=== PATIENT | female | born 1955 | race Caucasian/White ===

== ENCOUNTER 2019-02-21 12:22 | Inpatient (IN) ==
[2019-02-21] MEDS ORDERED: Albuterol 2.5 MG/3 ML NEBULIZER IH ONE (12:41)
[2019-02-21] MEDS ORDERED: cefOXitin 2,000 MG in Water for inj. (sterile) 20 ML IVP ONE (12:42)
[2019-02-21] MEDS ORDERED: Ringers Solution, Lactated 1,000 ML IVC SCH (12:45)
[2019-02-21] MEDS ORDERED: *HR* Promethazine 25 MG/ML VIAL IVP PRN (13:05)
[2019-02-21] MEDS ORDERED: *HR* OxyCODONE Immed Rel 5 MG TABLET PO PRN (13:05)
[2019-02-21] MEDS ORDERED: Ondansetron 4 MG/2 ML VIAL IVP ONE (13:05)
[2019-02-21] MEDS ORDERED: *HR* HYDROmorphone (PF) 1 MG/ML SYRINGE IVP PRN (13:05)
[2019-02-21] MEDS ORDERED: Scopolamine Patch 1.5 MG PATCH.TD72 TD ONE (13:30)
[2019-02-21] MEDS ORDERED: *HR* Propofol 200 MG/20 ML VIAL IVP ONE (14:11)
[2019-02-21] MEDS ORDERED: *HR* FentaNYL (PF) 100 MCG/2 ML VIAL ONE (14:11)
[2019-02-21] MEDS ORDERED: *HR* Midazolam HCl 2 MG/2 ML VIAL ONE (14:12)
[2019-02-21] MEDS ORDERED: Lidocaine -MPF 2% 2 ML VIAL ONE ×2 (14:13→14:14)
[2019-02-21] MEDS ORDERED: *HR* Rocuronium Bromide 50 MG/5 ML VIAL ONE ×2 (14:16→16:39)
[2019-02-21] MEDS ORDERED: Ondansetron 4 MG/2 ML VIAL ONE (14:16)
[2019-02-21] MEDS ORDERED: Lidocaine HCL 4 ML Topical Solution (Laryng-O-Jet Kit Sterile Pak) TP ONE (14:16)
[2019-02-21] MEDS ORDERED: Acetaminophen IV 1,000 MG/100 ML INFUS..BTL ONE (15:07)
[2019-02-21] MEDS ORDERED: *HR* PHENYLEPHRINE 1,000 MCG/10 ML SYRINGE IVP ONE (15:47)
[2019-02-21] MEDS ORDERED: Dexamethasone 4 MG/ML VIAL ONE (16:09)
[2019-02-21] MEDS ORDERED: *HR* Succinylcholine 200 MG/10 ML VIAL IVP ONE (16:26)
[2019-02-21] MEDS ORDERED: *HR* HYDROMORPHONE 2 MG/ML VIAL ONE (17:55)
[2019-02-21] MEDS ORDERED: Naloxone 0.4 MG/ML INJ IVP PRN (19:10)
[2019-02-21] MEDS ORDERED: Ondansetron 4 MG/2 ML VIAL IVP PRN (19:10)
[2019-02-21] MEDS: 0.9 % Sodium Chloride 1,000 ML IVC SCH (20:52)
[2019-02-22] MEDS ORDERED: Ketorolac 15 MG/ML VIAL IVP SCH
[2019-02-22 09:40] LABS: Basophils % 0.1 %; Hematocrit 39.4 % (35.3-44.9); Hemoglobin 12.6 g/dL (11.5-15.4); Immature Granulocytes % 0.6 % (0-4); Lymphocytes # 2.8 K/mcL (0.6-4.6); Lymphocytes % 16.9 %; Mean Corpuscular Volume 96.8 fL (83.0-100.0); Mean Platelet Volume 9.9 fL (9.4-12.4); Monocytes # 0.5 K/mcL (0.0-1.3); Monocytes % 3.1 %; Neutrophils # 13.3 K/mcL (1.6-8.9); Platelet Count 286 K/mcL (140-400); Red Blood Count 4.07 M/mcL (3.82-4.97); Red Cell Distribution Width 13.7 % (11.5-14.5); Segmented Neutrophils % 79.3 %; White Blood Count 16.7 K/mcL (4.3-11.1)
[2019-02-22 09:59] LABS: BUN/Creatinine Ratio 9 (6-26); Blood Urea Nitrogen 8 mg/dL (8-23); Calcium 8.7 mg/dL (8.6-10.3); Carbon Dioxide 20 mEq/L (23-29); Chloride 114 mEq/L (98-107); Glucose 170 mg/dL (70-105); Osmolality,Calculated 296 (280-300); Sodium 142 mEq/L (136-145); eGFR For African Americans > 60 (> 60); eGFR For Non-African Americans > 60 (> 60)
[2019-02-22] MEDS: Albuterol 2.5 MG/3 ML NEBULIZER IH SCH ×2 (15:49→22:15)
[2019-02-22] MEDS: 0.9 % Sodium Chloride 1,000 ML IVC SCH (19:34)
[2019-02-23] MEDS: 0.9 % Sodium Chloride 1,000 ML IVC SCH ×2 (00:38→14:30)
[2019-02-23] MEDS: Albuterol 2.5 MG/3 ML NEBULIZER IH SCH ×4 (04:27→22:13)
[2019-02-24] MEDS: 0.9 % Sodium Chloride 1,000 ML IVC SCH (03:30)
[2019-02-24] MEDS: Albuterol 2.5 MG/3 ML NEBULIZER IH SCH ×2 (03:59→11:17)
[2019-02-24 08:07] VITALS: BP 122/78
== END 2019-02-24 11:46 | disposition home or self-care (01) | DRG 331 ==
LOC: SAMDAY 12:22 → 3ANU 18:59
PROVIDERS: ADMIT Surgery; ATTEND Surgery

== ENCOUNTER 2020-11-05 15:43 | Inpatient (IN) ==
[2020-11-05] MEDS ORDERED: Naloxone 0.4 MG/ML INJ IVP PRN (19:48)
[2020-11-05 20:41] LABS: INR 1.4; Prothrombin Time 16.3 Seconds (9.4-12.1)
[2020-11-05 20:44] LABS: Activated Partial Thrombo Time 66.9 Seconds (26.0-36.0)
[2020-11-05 20:54] LABS: Heparin anti-factor XA UFH 0.6 IU/mL (0.30-0.70)
[2020-11-05] MEDS: Furosemide 40 MG/4 ML VIAL IVP SCH (21:03)
[2020-11-05] MEDS: Calcium Gluconate 1gm/50mL 1 GM/50 ML BAG IVPB SCH ×2 (21:03→21:45)
[2020-11-05 21:17] LABS: Basophils % 0.1 %; Hematocrit 37.6 % (35.3-44.9); Hemoglobin 11.7 g/dL (11.5-15.4); Immature Granulocytes % 0.7 % (0-4); Lymphocytes # 0.7 K/mcL (0.6-4.6); Mean Corpuscular HGB Conc 31.1 g/dL (31.6-35.5); Mean Corpuscular Hemoglobin 30.5 pg (28.0-33.3); Mean Platelet Volume 10.6 fL (9.4-12.4); Monocytes # 0.1 K/mcL (0.0-1.3); Monocytes % 0.9 %; Neutrophils # 9.4 K/mcL (1.6-8.9); Nucleated Red Blood Cells 0.2 /100 WBC (0); Platelet Count 318 K/mcL (140-400); Red Blood Count 3.83 M/mcL (3.82-4.97); Red Cell Distribution Width 18.9 % (11.5-14.5); Segmented Neutrophils % 91.3 %; White Blood Count 10.3 K/mcL (4.3-11.1)
[2020-11-05 21:26] LABS: Mean Corpuscular Volume 98.2 fL (83.0-100.0)
[2020-11-05 21:37] LABS: Albumin 3.4 g/dL (3.5-5.7); Albumin/Globulin Ratio 1.3 (1.1-2.2); Bilirubin,Total 0.4 mg/dL (0.3-1.0); Calcium 7.8 mg/dL (8.6-10.3); Globulin 2.6 g/dL (2.4-3.5); Magnesium 2.8 mg/dL (1.6-2.6); Phosphorous 4.3 mg/dL (2.7-4.5); Potassium 4.4 mEq/L (3.5-5.1)
[2020-11-05] MEDS ORDERED: *HR* Heparin 5,000 UNIT/ML VIAL IVP PRN ×2 (21:54)
[2020-11-05] MEDS: Heparin 25,000UNIT/250ML 1/2NS 25,000 UNIT/250 ML IV.SOLN IVC SCH (22:25)
[2020-11-06] MEDS ORDERED: Dextrose Gel 15 GM/37.5 ML TUBE PO PRN ×2
[2020-11-06] MEDS ORDERED: *HR* Dextrose 50 % in Water (Vial) 50 ML VIAL IVP PRN
[2020-11-06] MEDS ORDERED: D5% in Water 1,000 ML IVC PRN
[2020-11-06] MEDS ORDERED: Isovue-370 500 ML BOTTLE IVP ONE (00:05)
[2020-11-06] MEDS: Insulin LISPRO 300 UNITS/3 ML VIAL SUBQ SCH ×5 (00:12→20:55)
[2020-11-06 00:48] LABS: Bilirubin,Urine Negative (Negative); Blood,Urine Negative (Negative); Clarity,Urine Clear (Clear); Color,Urine Light-Yellow (Yellow); Glucose,Urine (UA) Normal (Normal); Ketones,Urine Negative (Negative); Leukocyte Esterase,Urine Negative (Negative); Nitrite,Urine Negative (Negative); PH,Urine 5.5 pH Units (5.0-8.0); Protein,Urine Negative (Neg-Trace); Specific Gravity,Urine 1.012 (1.010-1.025); Urobilinogen,Urine Normal (Normal)
[2020-11-06] MEDS ORDERED: Ipratropium/Albuterol Neb 3 ML IH PRN (00:51)
[2020-11-06 06:06] LABS: VBG Ionized Calcium 1.03 mmol/L (1.15-1.35)
[2020-11-06] MEDS ORDERED: Budesonide/Formoterol 160/4.5 1 PUFF INH IH ONE (07:29)
[2020-11-06] MEDS: Budesonide/Formoterol 160/4.5 1 PUFF INH IH SCH ×2 (07:33→20:21)
[2020-11-06] MEDS: Ipratropium/Albuterol Neb 3 ML IH SCH ×5 (07:33→23:40)
[2020-11-06] MEDS: Furosemide 40 MG/4 ML VIAL IVP SCH (07:36)
[2020-11-06] MEDS: Azithromycin 500 MG in 0.9 % Sodium Chloride 250 ML IVPB SCH (07:37)
[2020-11-06] MEDS: cefTRIAXone 1,000 MG in Water for inj. (sterile) 10 ML IVP SCH (07:39)
[2020-11-06] MEDS ORDERED: Perflutren Lipid Microsphere 1.3 ML in 0.9 % Sodium Chloride 8.7 ML IVP PRN (08:28)
[2020-11-06] MEDS ORDERED: Calcium Gluconate 1gm/50mL 1 GM/50 ML BAG IVPB SCH (08:30)
[2020-11-06 08:33] LABS: BUN/Creatinine Ratio 29 (6-26); Blood Urea Nitrogen 30 mg/dL (8-23); Calcium 8.9 mg/dL (8.6-10.3); Carbon Dioxide 23 mEq/L (23-29); Chloride 107 mEq/L (98-107); Glucose 108 mg/dL (70-105); Hematocrit 40.4 % (35.3-44.9); Hemoglobin 12.3 g/dL (11.5-15.4); Mean Corpuscular HGB Conc 30.4 g/dL (31.6-35.5); Mean Corpuscular Hemoglobin 29.9 pg (28.0-33.3); Mean Corpuscular Volume 98.1 fL (83.0-100.0); Mean Platelet Volume 10.6 fL (9.4-12.4); Osmolality,Calculated 307 (280-300); Platelet Count 357 K/mcL (140-400); Potassium 3.8 mEq/L (3.5-5.1); Red Blood Count 4.12 M/mcL (3.82-4.97); Red Cell Distribution Width 19.4 % (11.5-14.5); Sodium 145 mEq/L (136-145); White Blood Count 15.3 K/mcL (4.3-11.1); eGFR For African Americans > 60 (> 60); eGFR For Non-African Americans 53 (> 60)
[2020-11-06] MEDS: MethylPREDNISolone 40 MG/ML VIAL IVP SCH ×2 (08:35→16:46)
[2020-11-06] MEDS: Nystatin SUSP 5 ML UD.LIQ PO SCH ×4 (08:35→20:51)
[2020-11-06] MEDS ORDERED: polyethylene glycoL 3350 17 GM POWD.PACK PO PRN (08:38)
[2020-11-06] MEDS ORDERED: Albuterol 2.5 MG/3 ML NEBULIZER IH PRN (08:41)
[2020-11-06 08:46] LABS: Troponin I 0.12 ng/mL (< 0.04)
[2020-11-06 09:10] LABS: Adenovirus Not Detected (Not Detect); Bordetella Pertussis Not Detected (Not Detect); Chlamydophila pneumoniae Not Detected (Not Detect); Coronavirus 229E Not Detected (Not Detect); Coronavirus HKU1 Not Detected (Not Detect); Coronavirus NL63 Not Detected (Not Detect); Coronavirus OC43 Not Detected (Not Detect); Human Metapneumovirus Not Detected (Not Detect); Human Rhinovirus/Enterovirus Not Detected (Not Detect); Influenza A Subtype 2009 H1 Not Detected (Not Detect); Influenza B Not Detected (Not Detect); Mycoplasma pneumoniae Not Detected (Not Detect); Parainfluenza Virus 1 Not Detected (Not Detect); Parainfluenza Virus 2 Not Detected (Not Detect); Parainfluenza Virus 3 Not Detected (Not Detect); Parainfluenza Virus 4 Not Detected (Not Detect); Respiratory Syncytial Virus Not Detected (Not Detect); SARS-CoV-2 Not Detected (Not Detect)
[2020-11-06] MEDS: ALPRAZolam 0.25 MG TABLET PO SCH ×2 (12:18→20:51)
[2020-11-06] MEDS: Gabapentin 100 MG CAPSULE PO SCH ×3 (12:18→20:51)
[2020-11-06 14:06] LABS: VBG Ionized Calcium 1.02 mmol/L (1.15-1.35)
[2020-11-06 14:28] LABS: BUN/Creatinine Ratio 28 (6-26); Blood Urea Nitrogen 29 mg/dL (8-23); Carbon Dioxide 22 mEq/L (23-29); Chloride 108 mEq/L (98-107); Glucose 157 mg/dL (70-105); Osmolality,Calculated 307 (280-300); Potassium 3.8 mEq/L (3.5-5.1); Sodium 144 mEq/L (136-145); Troponin I 0.11 ng/mL (< 0.04); eGFR For African Americans > 60 (> 60); eGFR For Non-African Americans 53 (> 60)
[2020-11-07] MEDS: MethylPREDNISolone 40 MG/ML VIAL IVP SCH ×4 (00:17→23:47)
[2020-11-07] MEDS: Heparin 25,000UNIT/250ML 1/2NS 25,000 UNIT/250 ML IV.SOLN IVC SCH (00:18)
[2020-11-07 02:32] LABS: Basophils % 0.1 %; Hematocrit 36.8 % (35.3-44.9); Hemoglobin 11.3 g/dL (11.5-15.4); Immature Granulocytes % 0.6 % (0-4); Lymphocytes # 1.1 K/mcL (0.6-4.6); Lymphocytes % 7.3 %; Mean Corpuscular HGB Conc 30.7 g/dL (31.6-35.5); Mean Corpuscular Hemoglobin 30.6 pg (28.0-33.3); Mean Corpuscular Volume 99.7 fL (83.0-100.0); Mean Platelet Volume 10.5 fL (9.4-12.4); Monocytes # 0.5 K/mcL (0.0-1.3); Monocytes % 3.3 %; Neutrophils # 12.8 K/mcL (1.6-8.9); Nucleated Red Blood Cells 0.1 /100 WBC (0); Platelet Count 318 K/mcL (140-400); Red Blood Count 3.69 M/mcL (3.82-4.97); Red Cell Distribution Width 19.6 % (11.5-14.5); Segmented Neutrophils % 88.7 %; White Blood Count 14.4 K/mcL (4.3-11.1)
[2020-11-07 02:54] LABS: Alanine Aminotransferase 84 Units/L (7-52); Albumin 3.8 g/dL (3.5-5.7); Albumin/Globulin Ratio 1.4 (1.1-2.2); Alkaline Phosphatase 121 Units/L (34-104); Aspartate Amino Transferase 34 Units/L (13-39); BUN/Creatinine Ratio 27 (6-26); Bilirubin,Direct 0.1 mg/dL (0.0-0.2); Bilirubin,Indirect 0.3 mg/dL (0.0-1.0); Bilirubin,Total 0.4 mg/dL (0.3-1.0); Blood Urea Nitrogen 24 mg/dL (8-23); Calcium 8.9 mg/dL (8.6-10.3); Carbon Dioxide 25 mEq/L (23-29); Chloride 106 mEq/L (98-107); Globulin 2.8 g/dL (2.4-3.5); Glucose 140 mg/dL (70-105); Magnesium 2.7 mg/dL (1.6-2.6); Osmolality,Calculated 298 (280-300); Phosphorous 2.9 mg/dL (2.7-4.5); Sodium 141 mEq/L (136-145); Total Protein 6.6 g/dL (6.4-8.9); eGFR For African Americans > 60 (> 60); eGFR For Non-African Americans > 60 (> 60)
[2020-11-07] MEDS: Ipratropium/Albuterol Neb 3 ML IH SCH ×6 (03:32→23:23)
[2020-11-07] MEDS: ALPRAZolam 0.25 MG TABLET PO SCH ×2 (07:28→20:00)
[2020-11-07] MEDS: Gabapentin 100 MG CAPSULE PO SCH ×3 (07:28→19:59)
[2020-11-07] MEDS: Nystatin SUSP 5 ML UD.LIQ PO SCH ×4 (07:28→19:59)
[2020-11-07] MEDS: Aspirin 81 MG TAB.CHEW PO SCH (07:28)
[2020-11-07] MEDS: cefTRIAXone 1,000 MG in Water for inj. (sterile) 10 ML IVP SCH (07:32)
[2020-11-07] MEDS: Azithromycin 500 MG in 0.9 % Sodium Chloride 250 ML IVPB SCH (07:33)
[2020-11-07] MEDS: Insulin LISPRO 300 UNITS/3 ML VIAL SUBQ SCH ×4 (07:37→20:00)
[2020-11-07] MEDS: Budesonide/Formoterol 160/4.5 1 PUFF INH IH SCH ×2 (08:07→20:29)
[2020-11-07] MEDS ORDERED: Furosemide 40 MG/4 ML VIAL IVP ONE (10:15)
[2020-11-07] MEDS: Chlorhexidine Rinse 15 ML MOUTHWASH MM SCH ×2 (11:13→19:59)
[2020-11-07] MEDS: Acetaminophen 325 MG TABLET PO PRN ×2 (14:20→20:00)
[2020-11-07] MEDS: levoFLOXacin 750 MG/150 ML 750 MG/150 ML BAG IVPB SCH (16:33)
[2020-11-07] MEDS: Piperacillin/Tazobactam 3.375 GM in 0.9 % Sodium Chloride Mini Bag 100 ML IVPB SCH ×2 (16:33→23:48)
[2020-11-07] MEDS: *HR* Heparin 5,000 UNIT/ML VIAL SQ SCH (16:34)
[2020-11-08 00:54] LABS: Basophils % 0.1 %; Hematocrit 35.3 % (35.3-44.9); Lymphocytes # 1.6 K/mcL (0.6-4.6); Mean Corpuscular HGB Conc 31.2 g/dL (31.6-35.5); Mean Corpuscular Hemoglobin 30.1 pg (28.0-33.3); Mean Corpuscular Volume 96.7 fL (83.0-100.0); Mean Platelet Volume 10.3 fL (9.4-12.4); Monocytes # 0.8 K/mcL (0.0-1.3); Monocytes % 4.6 %; Neutrophils # 14.8 K/mcL (1.6-8.9); Nucleated Red Blood Cells 0.1 /100 WBC (0); Platelet Count 302 K/mcL (140-400); Red Blood Count 3.65 M/mcL (3.82-4.97); Red Cell Distribution Width 19.7 % (11.5-14.5); Segmented Neutrophils % 85.3 %; White Blood Count 17.4 K/mcL (4.3-11.1)
[2020-11-08 01:12] LABS: BUN/Creatinine Ratio 28 (6-26); Blood Urea Nitrogen 24 mg/dL (8-23); Calcium 8.7 mg/dL (8.6-10.3); Carbon Dioxide 26 mEq/L (23-29); Chloride 103 mEq/L (98-107); Glucose 156 mg/dL (70-105); Magnesium 2.3 mg/dL (1.6-2.6); Osmolality,Calculated 293 (280-300); Phosphorous 2.1 mg/dL (2.7-4.5); Potassium 4.4 mEq/L (3.5-5.1); Sodium 138 mEq/L (136-145); eGFR For African Americans > 60 (> 60); eGFR For Non-African Americans > 60 (> 60)
[2020-11-08] MEDS: Ipratropium/Albuterol Neb 3 ML IH SCH ×6 (04:07→23:00)
[2020-11-08] MEDS: *HR* Heparin 5,000 UNIT/ML VIAL SQ SCH ×2 (05:07→18:16)
[2020-11-08] MEDS: Insulin LISPRO 300 UNITS/3 ML VIAL SUBQ SCH ×3 (07:57→18:16)
[2020-11-08] MEDS: ALPRAZolam 0.25 MG TABLET PO SCH ×2 (07:59→20:53)
[2020-11-08] MEDS: Aspirin 81 MG TAB.CHEW PO SCH (07:59)
[2020-11-08] MEDS: Gabapentin 100 MG CAPSULE PO SCH ×3 (08:00→20:53)
[2020-11-08] MEDS: Chlorhexidine Rinse 15 ML MOUTHWASH MM SCH ×2 (08:00→20:54)
[2020-11-08] MEDS: Nystatin SUSP 5 ML UD.LIQ PO SCH ×4 (08:00→20:54)
[2020-11-08] MEDS: Piperacillin/Tazobactam 3.375 GM in 0.9 % Sodium Chloride Mini Bag 100 ML IVPB SCH ×2 (08:01→15:46)
[2020-11-08] MEDS: MethylPREDNISolone 40 MG/ML VIAL IVP SCH ×2 (08:01→15:45)
[2020-11-08] MEDS: Budesonide/Formoterol 160/4.5 1 PUFF INH IH SCH ×2 (08:36→20:01)
[2020-11-08] MEDS ORDERED: Furosemide 20 MG/2 ML VIAL IVP SCH (09:00)
[2020-11-08] MEDS: Calcium Gluconate 1gm/50mL 1 GM/50 ML BAG IVPB SCH ×2 (13:08→15:59)
[2020-11-08] MEDS: levoFLOXacin 750 MG/150 ML 750 MG/150 ML BAG IVPB SCH (15:48)
[2020-11-09] MEDS: Insulin LISPRO 300 UNITS/3 ML VIAL SUBQ SCH ×4 (00:29→17:42)
[2020-11-09] MEDS: MethylPREDNISolone 40 MG/ML VIAL IVP SCH ×3 (00:42→15:37)
[2020-11-09] MEDS: Piperacillin/Tazobactam 3.375 GM in 0.9 % Sodium Chloride Mini Bag 100 ML IVPB SCH ×3 (00:43→15:38)
[2020-11-09 01:13] LABS: Basophils % 0.1 %; Hemoglobin 11.1 g/dL (11.5-15.4); Immature Granulocytes % 0.8 % (0-4); Lymphocytes # 1.4 K/mcL (0.6-4.6); Lymphocytes % 7.7 %; Mean Corpuscular HGB Conc 30.8 g/dL (31.6-35.5); Mean Corpuscular Hemoglobin 30.4 pg (28.0-33.3); Mean Corpuscular Volume 98.6 fL (83.0-100.0); Mean Platelet Volume 10.3 fL (9.4-12.4); Monocytes # 1.3 K/mcL (0.0-1.3); Neutrophils # 15.2 K/mcL (1.6-8.9); Platelet Count 303 K/mcL (140-400); Red Blood Count 3.65 M/mcL (3.82-4.97); Red Cell Distribution Width 19.5 % (11.5-14.5); Segmented Neutrophils % 84.4 %; White Blood Count 17.9 K/mcL (4.3-11.1)
[2020-11-09 01:31] LABS: BUN/Creatinine Ratio 23 (6-26); Blood Urea Nitrogen 20 mg/dL (8-23); Calcium 9.3 mg/dL (8.6-10.3); Carbon Dioxide 30 mEq/L (23-29); Chloride 104 mEq/L (98-107); Glucose 166 mg/dL (70-105); Magnesium 2.1 mg/dL (1.6-2.6); Osmolality,Calculated 298 (280-300); Phosphorous 2.3 mg/dL (2.7-4.5); Potassium 4.5 mEq/L (3.5-5.1); Sodium 141 mEq/L (136-145); eGFR For African Americans > 60 (> 60); eGFR For Non-African Americans > 60 (> 60)
[2020-11-09] MEDS: Ipratropium/Albuterol Neb 3 ML IH SCH ×6 (03:50→23:13)
[2020-11-09 04:13] LABS: ABG Base Excess 4 mEq/L (-2 to 3); ABG HCO3 29 mEq/L (21-27); ABG Oxygen Saturation 87 % (95-98); ABG PCO2 41 mmHg (35-45); ABG PH 7.45 pH Units (7.32-7.45); ABG PO2 51 mmHg (85-104); ABG TCO2 30 mEq/L (20-26); Blood Gas Modality 60L
[2020-11-09] MEDS: *HR* Heparin 5,000 UNIT/ML VIAL SQ SCH ×2 (06:15→17:42)
[2020-11-09] MEDS: Nystatin SUSP 5 ML UD.LIQ PO SCH ×4 (08:05→21:18)
[2020-11-09] MEDS: Chlorhexidine Rinse 15 ML MOUTHWASH MM SCH ×2 (08:05→21:18)
[2020-11-09] MEDS: Gabapentin 100 MG CAPSULE PO SCH ×3 (08:07→21:18)
[2020-11-09] MEDS: ALPRAZolam 0.25 MG TABLET PO SCH ×2 (08:07→21:18)
[2020-11-09] MEDS: Aspirin 81 MG TAB.CHEW PO SCH (08:07)
[2020-11-09] MEDS: Budesonide/Formoterol 160/4.5 1 PUFF INH IH SCH ×2 (08:09→19:44)
[2020-11-09] MEDS: levoFLOXacin 750 MG/150 ML 750 MG/150 ML BAG IVPB SCH (15:37)
[2020-11-09] MEDS: Acetaminophen 325 MG TABLET PO PRN (15:54)
[2020-11-09] MEDS: traZODone 50 MG TABLET PO PRN (21:18)
[2020-11-10] MEDS: Insulin LISPRO 300 UNITS/3 ML VIAL SUBQ SCH ×5 (00:51→21:12)
[2020-11-10] MEDS: Piperacillin/Tazobactam 3.375 GM in 0.9 % Sodium Chloride Mini Bag 100 ML IVPB SCH ×3 (00:51→17:18)
[2020-11-10] MEDS: MethylPREDNISolone 40 MG/ML VIAL IVP SCH ×3 (00:52→17:18)
[2020-11-10 01:21] LABS: Basophils % 0.1 %; Hematocrit 36.5 % (35.3-44.9); Hemoglobin 11.2 g/dL (11.5-15.4); Immature Granulocytes % 0.9 % (0-4); Lymphocytes # 1.4 K/mcL (0.6-4.6); Mean Corpuscular HGB Conc 30.7 g/dL (31.6-35.5); Mean Corpuscular Hemoglobin 30.5 pg (28.0-33.3); Mean Corpuscular Volume 99.5 fL (83.0-100.0); Mean Platelet Volume 10.2 fL (9.4-12.4); Monocytes # 1.1 K/mcL (0.0-1.3); Monocytes % 6.5 %; Neutrophils # 14.5 K/mcL (1.6-8.9); Platelet Count 296 K/mcL (140-400); Red Blood Count 3.67 M/mcL (3.82-4.97); Red Cell Distribution Width 19.4 % (11.5-14.5); Segmented Neutrophils % 84.5 %; White Blood Count 17.2 K/mcL (4.3-11.1)
[2020-11-10 01:38] LABS: BUN/Creatinine Ratio 22 (6-26); Blood Urea Nitrogen 17 mg/dL (8-23); Calcium 8.9 mg/dL (8.6-10.3); Carbon Dioxide 28 mEq/L (23-29); Chloride 107 mEq/L (98-107); Glucose 142 mg/dL (70-105); Magnesium 2.2 mg/dL (1.6-2.6); Osmolality,Calculated 302 (280-300); Phosphorous 3.4 mg/dL (2.7-4.5); Potassium 4.2 mEq/L (3.5-5.1); Sodium 144 mEq/L (136-145); eGFR For African Americans > 60 (> 60); eGFR For Non-African Americans > 60 (> 60)
[2020-11-10] MEDS: Ipratropium/Albuterol Neb 3 ML IH SCH ×6 (04:00→23:29)
[2020-11-10] MEDS: Acetaminophen 325 MG TABLET PO PRN (05:44)
[2020-11-10] MEDS: *HR* Heparin 5,000 UNIT/ML VIAL SQ SCH ×2 (05:45→17:18)
[2020-11-10] MEDS: Budesonide/Formoterol 160/4.5 1 PUFF INH IH SCH ×2 (07:28→20:32)
[2020-11-10] MEDS: Chlorhexidine Rinse 15 ML MOUTHWASH MM SCH ×2 (07:55→21:09)
[2020-11-10] MEDS: Nystatin SUSP 5 ML UD.LIQ PO SCH ×4 (07:55→21:09)
[2020-11-10] MEDS: Furosemide 40 MG/4 ML VIAL IVP SCH ×2 (07:55→21:10)
[2020-11-10] MEDS: ALPRAZolam 0.25 MG TABLET PO SCH ×2 (07:55→21:10)
[2020-11-10] MEDS: Aspirin 81 MG TAB.CHEW PO SCH (07:56)
[2020-11-10] MEDS: Gabapentin 100 MG CAPSULE PO SCH ×3 (07:56→21:10)
[2020-11-10] MEDS ORDERED: Ondansetron 4 MG/2 ML VIAL IVP PRN (12:13)
[2020-11-10] MEDS ORDERED: Scopolamine Patch 1.5 MG PATCH.TD72 TD SCH (12:15)
[2020-11-10] MEDS: Morphine Sulfate Oral CONC 10 MG/0.5 ML ORAL.SYG SL PRN ×2 (13:22→21:08)
[2020-11-10] MEDS: levoFLOXacin 750 MG/150 ML 750 MG/150 ML BAG IVPB SCH (15:21)
[2020-11-10] MEDS: traZODone 50 MG TABLET PO PRN (21:09)
[2020-11-11] MEDS: Piperacillin/Tazobactam 3.375 GM in 0.9 % Sodium Chloride Mini Bag 100 ML IVPB SCH ×4 (00:55→23:53)
[2020-11-11] MEDS: MethylPREDNISolone 40 MG/ML VIAL IVP SCH ×4 (00:56→23:53)
[2020-11-11] MEDS: Morphine Sulfate Oral CONC 10 MG/0.5 ML ORAL.SYG SL PRN ×5 (00:56→23:52)
[2020-11-11 01:28] LABS: Hematocrit 39.9 % (35.3-44.9); Hemoglobin 12.3 g/dL (11.5-15.4); Mean Corpuscular HGB Conc 30.8 g/dL (31.6-35.5); Mean Corpuscular Volume 97.3 fL (83.0-100.0); Mean Platelet Volume 10.3 fL (9.4-12.4); Platelet Count 348 K/mcL (140-400); Red Cell Distribution Width 19.1 % (11.5-14.5); White Blood Count 20.4 K/mcL (4.3-11.1)
[2020-11-11 01:45] LABS: BUN/Creatinine Ratio 20 (6-26); Blood Urea Nitrogen 20 mg/dL (8-23); Calcium 9.1 mg/dL (8.6-10.3); Carbon Dioxide 32 mEq/L (23-29); Chloride 99 mEq/L (98-107); Glucose 175 mg/dL (70-105); Osmolality,Calculated 299 (280-300); Potassium 3.9 mEq/L (3.5-5.1); Sodium 141 mEq/L (136-145); eGFR For African Americans > 60 (> 60); eGFR For Non-African Americans 56 (> 60)
[2020-11-11] MEDS: Ipratropium/Albuterol Neb 3 ML IH SCH ×6 (03:38→23:02)
[2020-11-11] MEDS: *HR* Heparin 5,000 UNIT/ML VIAL SQ SCH ×2 (06:53→17:28)
[2020-11-11] MEDS: Budesonide/Formoterol 160/4.5 1 PUFF INH IH SCH ×2 (07:25→20:10)
[2020-11-11] MEDS: Chlorhexidine Rinse 15 ML MOUTHWASH MM SCH ×2 (08:31→19:45)
[2020-11-11] MEDS: Furosemide 40 MG/4 ML VIAL IVP SCH ×2 (08:31→19:45)
[2020-11-11] MEDS: Nystatin SUSP 5 ML UD.LIQ PO SCH ×4 (08:31→19:44)
[2020-11-11] MEDS: ALPRAZolam 0.25 MG TABLET PO SCH ×2 (08:32→19:45)
[2020-11-11] MEDS: Insulin LISPRO 300 UNITS/3 ML VIAL SUBQ SCH ×4 (08:32→19:49)
[2020-11-11] MEDS: Aspirin 81 MG TAB.CHEW PO SCH (08:32)
[2020-11-11] MEDS: Gabapentin 100 MG CAPSULE PO SCH ×3 (08:33→19:45)
[2020-11-11] MEDS: levoFLOXacin 750 MG/150 ML 750 MG/150 ML BAG IVPB SCH (16:12)
[2020-11-12] MEDS: Ipratropium/Albuterol Neb 3 ML IH SCH ×2 (04:15→07:37)
[2020-11-12] MEDS: *HR* Heparin 5,000 UNIT/ML VIAL SQ SCH (05:45)
[2020-11-12 07:32] VITALS: BP 128/74
[2020-11-12] MEDS: Budesonide/Formoterol 160/4.5 1 PUFF INH IH SCH (07:37)
[2020-11-12] MEDS: Gabapentin 100 MG CAPSULE PO SCH (07:41)
[2020-11-12] MEDS: Chlorhexidine Rinse 15 ML MOUTHWASH MM SCH (07:41)
[2020-11-12] MEDS: Piperacillin/Tazobactam 3.375 GM in 0.9 % Sodium Chloride Mini Bag 100 ML IVPB SCH (07:41)
[2020-11-12] MEDS: Nystatin SUSP 5 ML UD.LIQ PO SCH (07:41)
[2020-11-12] MEDS: Furosemide 40 MG/4 ML VIAL IVP SCH (07:41)
[2020-11-12] MEDS: MethylPREDNISolone 40 MG/ML VIAL IVP SCH (07:41)
[2020-11-12] MEDS: ALPRAZolam 0.25 MG TABLET PO SCH (07:41)
[2020-11-12] MEDS: Aspirin 81 MG TAB.CHEW PO SCH (07:41)
[2020-11-12] MEDS: Insulin LISPRO 300 UNITS/3 ML VIAL SUBQ SCH (07:42)
[2020-11-12] MEDS: Morphine Sulfate Oral CONC 10 MG/0.5 ML ORAL.SYG SL PRN (07:51)
[2020-11-13] MEDS ORDERED: levoFLOXacin 750 MG/150 ML 750 MG/150 ML BAG IVPB SCH (15:00)
== END 2020-11-12 11:23 | disposition hospice, home (50) | DRG 871 ==
LOC: ICNU → SUATTDRO 21:48 → 2NNU 11-06 19:19
PROVIDERS: ADMIT Internal Medicine; ATTEND Internal Medicine